=== PATIENT | female | born 1975 | race Caucasian/White ===

== ENCOUNTER → 2017-10-07 | Outpatient (CLI) | payer OTHER ==
[2017-10-08 01:14] LABS: Cardiolipin Ab IgG Interp NEGATIVE (NEGATIVE); Cardiolipin Ab IgM Interp NEGATIVE (NEGATIVE); Cardiolipin IgA Antibody <0.5 U/mL; Cardiolipin IgM Antibody 2.3 U/mL
[2017-10-08 01:42] LABS: Rheumatoid Factor 6 IU/mL (0-15)
[2017-10-08 10:30] LABS: Protein C (Activity) 59 % (71-138)
[2017-10-08 10:31] LABS: Anti-Thrombin III Activity 132 % (79-109)
== END | disposition home or self-care (01) ==
LOC: LABWHC1 15:48
PROVIDERS: ATTEND Nurse Practitioner Acute Care
DX: M13.0 Polyarthritis, unspecified (principal); M25.50 Pain in unspecified joint; I63.9 Cerebral infarction, unspecified
CPT/HCPCS: 36415; 81240; 81291; 83090; 85300; 85301; 85302; 85303; 85305; 85306; 85613; 85730; 86038; 86147; 86431

== ENCOUNTER → 2017-11-08 | Outpatient (CLI) | payer OTHER ==
--- NOTE | 2017-11-09 16:40 | NM ---
EXAMINATION TYPE: NM DatScan Brain SPECT DATE OF EXAM: 11/08/2017 COMPARISON: NONE HISTORY: Tremor TECHNIQUE: 10 drops of Lugol's solution was administered 1 hour prior to injection as a thyroid bloc geeta agent. After the administration of 4.34 mCi I-123 Ioflupane DaTscan. Images obtained 3 hours p ost injection. SPECT images of the brain were acquired with axial and coronal reconstructions. FINDINGS: The patient is slightly asymmetrically placed within the gantry. The DaTSCAN demonstrates normal upta ke of tracer throughout the striata. Consequently there is no evidence of loss of the pre-synaptic dopaminergic terminals on this investig ation. IMPRESSION: This normal appearance is against a diagnosis of idiopathic Parkinson?s disease (PD) or a Parkinsonia n syndrome (PS) and is seen in healthy individuals and also patients with essential tremor (ET), drug induced parkinsonism, and vascular pseudo-parkinsonism.
== END | disposition home or self-care (01) ==
LOC: RADNMMAIN 11:20
PROVIDERS: ATTEND Psychiatry & Neurology Neurology
DX: G21.19 Other drug induced secondary parkinsonism (principal); G21.4 Vascular parkinsonism; G25.0 Essential tremor
CPT/HCPCS: 78607; A9584